=== PATIENT | male | born 1965 | race Caucasian/White ===

== ENCOUNTER → 2017-03-15 | Outpatient (CLI) | payer OTHER | LOC: CARD 10:41 | PROVIDERS: ATTEND Nurse Practitioner Family | DX: R07.89 Other chest pain (principal); R06.09 Other forms of dyspnea | CPT/HCPCS: 93306 ==

== ENCOUNTER → 2017-03-20 | Outpatient (CLI) | payer OTHER ==
[~2017-03-20] MED LIST: CATHETER FLUSH 10 ML SYR IV PRN; REGADENOSON 0.4 MG/5 ML SYR (LEXISCAN) IV ONE
[2017-03-20 09:56] VITALS: BP 127/76
--- NOTE | 2017-03-22 14:20 | STRESS TEST ---
DATE OF SERVICE: 03/20/2017 RESTING AND POST REGADENOSON TECHNETIUM-99m TETROFOSMIN SPECT CT IMAGING ORDERING PHYSICIAN: Kourtney Murguia APRN PRIMARY PHYSICIAN: [facility] in [place], [place]. CLINICAL DIAGNOSIS: Chest pain, exertional shortness of breath. Baseline images were carried out after injection of 10.49 mCi Technetium-99M Tetrofosmin. This was followed by 0.4 mg of regadenoson and 31.2 mCi of Technetium-99M Tetrofosmin for stress imaging. The electrocardiogram showed sinus rhythm with borderline voltage for left ventricular hypertrophy. The electrocardiogram did not change significantly with the regadenoson infusion. He was somewhat short of breath following regadenoson infusion, which resolved in a few minutes. Review of images at rest and following stress does not indicate significant perfusion defects consistent with significant myocardial ischemia or infarction. Gated images show well preserved global left ventricular systolic function with a calculated ejection fraction of 52%. No distinct regional wall motion abnormalities seen. Left ventricular end diastolic volume is 120 mL. TID is absent (0.99). CONCLUSIONS: 1. No evidence of significant myocardial ischemia or infarction on this study. 2. Mild to moderate cardiomegaly. 3. No significant regional wall motion abnormalities seen on this study. 4. Left ventricular ejection fraction is calculated to be 52%. Job ID: [id number] DocumentID: [id number] Dictated Date: 03/22/2017 12:06:17 Kennel Manager Dog [employer] Date: 03/22/2017 12:50:27 Dictated By: RA TORRES MD, MA, FACP, FACC,
== END ==
LOC: CARD 07:44
PROVIDERS: ATTEND Nurse Practitioner Family
DX: R07.89 Other chest pain (principal); R06.09 Other forms of dyspnea
CPT/HCPCS: 78452; 93017

== ENCOUNTER 2022-04-22 13:40 | Inpatient (IN) | payer OTHER ==
[~2022-04-22] VITALS: Ht 177.8 cm; Wt 115.0 kg
[2022-04-22] MEDS ORDERED: polyethylene glycoL POWDER 17 GM (MIRALAX) PACK PO PRN (16:00)
[2022-04-22] MEDS ORDERED: LACTULOSE SYRUP 10GM/15ML (ENULOSE) 30ML UDC PO PRN (16:00)
[2022-04-22] MEDS ORDERED: NS IV 500 ML 500 ML IV PRN ×2 (16:00→19:30)
[2022-04-22] MEDS ORDERED: BISACODYL 10 MG SUPP (DULCOLAX) PR PRN (16:00)
[2022-04-22] MEDS ORDERED: ONDANSETRON 4 MG/2 ML (SDV) Z0FRAN IV PRN (16:00)
[2022-04-22] MEDS ORDERED: MELATONIN 3 MG TABLET PO PRN (16:00)
[2022-04-22] MEDS ORDERED: diphenhydrAMINE 25 MG TAB (BENADRYL) PO PRN (16:00)
[2022-04-22] MEDS ORDERED: ONDANSETRON 4 MG (ZOFRAN) ORAL DISSOLVE TAB PO PRN (16:00)
[2022-04-22] MEDS ORDERED: VANCOMYCIN INJECTION 0.1 MG in NS (IVPB) 250 ML IV SCH (16:00)
[2022-04-22] MEDS ORDERED: MILK OF MAGNESIA 400 MG/5 ML 30 ML UDC PO PRN (16:00)
[2022-04-22] MEDS ORDERED: ANTACID SUSP 30 ML UDC (MYLANTA) PO PRN (16:00)
[2022-04-22] MEDS ORDERED: diphenhydrAMINE 50 MG/ML INJ (BENADRYL) IVP PRN (16:00)
[2022-04-22] MEDS ORDERED: CALCIUM CARBONATE 500 MG (TUMS) TAB.CHEW PO PRN (16:00)
[2022-04-22] MEDS: CEFEPIME INJECTION 1,000 MG in NS (IVPB) 50 ML IV SCH ×2 (16:57→21:55)
[2022-04-22] MEDS: ENOXAPARIN 40 MG/0.4 ML (LOVENOX) SYR SC SCH (16:57)
[2022-04-22] MEDS: ACETAMINOPHEN 325 MG TABLET PO PRN ×2 (16:58→22:30)
[2022-04-22] MEDS: NS IV 1000 ML 1,000 ML IV SCH (16:58)
[2022-04-22 17:53] LABS: AMPHETAMINE SCREEN, URINE POSITIVE (NEGATIVE); BARBITURATE SCREEN URINE NEGATIVE (NEGATIVE); BENZODIAZEPINES SCREEN URINE NEGATIVE (NEGATIVE); CANNABINOID SCREEN, URINE NEGATIVE (NEGATIVE); COCAINE SCREEN URINE NEGATIVE (NEGATIVE); METHADONE STAT NEGATIVE (NEGATIVE); OPIATE SCREEN URINE NEGATIVE (NEGATIVE); OXYCODONE STAT NEGATIVE (NEGATIVE); PROPOXYPHENE STAT NEGATIVE (NEGATIVE); TRICYCLIC ANTIDEPRESSANTS SCRE NEGATIVE (NEGATIVE)
[2022-04-22] MEDS ORDERED: VANCOMYCIN 2000 MG/NS 500 ML IVPB IV ONE ×2 (18:00)
--- NOTE | 2022-04-22 18:03 | Tele-ICU Consult ---
History of Present Illness History of Present Illness Date Seen by Provider: Apr 22, 2022 Time Seen by Provider: 17:59 Date of Admission 04/22/2022 History of Present Illness (Tele-ICU Physician , consultation) Available chart/ vitals / labs / Images reviewed H&P is from ER notes Patient's information available about PMH, allergy reviewed in EMR. ROS as per chart and RN report Video assessment done using teleICU camera, rest of exam as per RN Discussed with RN. He is a 56-year-old male. Past medical history of drug abuse is transferred from [facility] because of possible sepsis. Apparently he has been having some redness in the legs and fever and they have suspected Severe sepsis hence he is transferred to higher level of according to the ICU nurse patient has scabs and wounds all over the legs and arms. His urine drug screen came positive for amphetamines and methamphetamines. It is not known whether he has any IV drug abuse. Reportedly he had a MRSA infection in the past. Allergies and Home Medications Allergies Coded Allergies: No Known Drug Allergies (Unverified , 10/15/15) Past Medical/Social/Family Hx Immunizations Up To Date Influenza Vaccine Up-to-Date: No; Not Current Current Status Advance Directives: No Communicates: Verbally Primary Language: Cymro Preferred Spoken Language: Cymro Is interpretation needed?: No Implanted or Applied Medical D: Other Review of Systems Constitutional: see HPI Focused Exam Height, Weight, BMI Height: 5'10.5" Weight: 223lbs. oz. 101.226586qp; 35.74 BMI Method:Stated Exam Exam Patient acknowledged, consented, and participated in this virtual visit which was conducted using real time audio/video Vital Signs Date Time Temp Pulse Resp B/P (MAP) Pulse Ox O2 Delivery O2 Flow Rate FiO2 04/22/22 17:49 38.4 04/22/22 17:48 38.4 04/22/22 17:04 95 04/22/22 17:00 93 26 131/90 (104) 92 Room Air 04/22/22 16:58 38.4 04/22/22 16:11 37.3 94 14 108/74 (85) 99 Room Air Height & Weight Height: 5'10.5" Weight: 223lbs. oz. 101.628883ij; 35.74 BMI Method:Stated General Appearance: Chronically ill, Mild Distress, Obese Capillary Refill: Less Than 3 Seconds Other comments PE PER air grinder/Plan Assessment/Plan 1. Cellulitis of extremities 2. Possible severe sepsis 3. Possible MRSA infection 4. Drug abuse with amphetamines and methamphetamines. Recommendations. 1. IV fluids for hydration 2. Agree with vancomycin and cefepime 3. DVT prophylaxis and ulcer prophylaxis. 4. Get blood cultures and wound cultures. 5. Awaiting for further labs and information from [place]. Critical Care: Critically Ill Patient Time spent with patient (mins): 20 SHAQ SEVERINO MD Apr 22, 2022 18:03
--- NOTE | 2022-04-22 18:06 | History & Physical-Hospitalist ---
History of Present Illness HPI/Chief Complaint Tera Alva is a 56 year old male with PMH COPD, current smoker, who presented to the [place] ER with weakness. He has had myalgias for a couple days. He also reports right leg rash. His had COVID a couple weeks ago. He was tested yesteray and today and both were negative. He has had fevers. He denies shortness of breath. He has a cough. His throat feels dry. He denies neck pain and photophobia. He denies pain with urination. He denies abdominal pain. He reports nausea and vomiting today. He also had an episode of diarrhea. He says he smokes a half a pack of cigarettes per day. He denies alcohol use. He denies illicit drug use. Source: patient, family Exam Limitations: clinical condition Date Seen 04/22/22 Time Seen by a Provider: 17:15 [facility] Phys[facility] Admitting Physician: Griselda Tom MD Attending Physician: Griselda Tom MD Referring Physician Date of Admission Apr 22, 2022 at 15:50 Home Medications & Allergies Home Medications Reviewed patient Home Medication Reconciliation performed by pharmacy medication reconciliations certification technician and/or nursing. Patients Allergies have been reviewed. Allergies Allergies Coded Allergies No Known Drug Allergies (Unverified10/15/15) Past Mhogmza-Ngcguj-Mdmffm Hx Current Status Advance Directives: No Communicates: Verbally Primary Language: Slovak Preferred Spoken Language: Slovak Is interpretation needed?: No Implanted or Applied Medical D: Other Past Medical History Surgeries: Open Heart Surgery Chronic Bronchitis, COPD Congenital Heart Disease, Palpitations Ulcer Family Medical History No Pertinent Family Hx Review of Systems Constitutional: fever, malaise EENTM: throat pain Respiratory: cough Cardiovascular: no symptoms reported Gastrointestinal: diarrhea, nausea, vomiting Genitourinary: no symptoms reported Musculoskeletal: muscle pain Physical Exam Physical Exam Vital Signs Vital Signs - First Documented 04/22/22 16:11 Temp 37.3 Pulse 94 Resp 14 B/P (MAP) 108/74 (85) Pulse Ox 99 O2 Delivery Room Air Capillary Refill : Less Than 3 Seconds Height, Weight, BMI Height: 5'10.5" Weight: 223lbs. oz. 101.593623zj; 35.74 BMI Method:Stated General Appearance: No Apparent Distress, Obese HEENT: PERRL/EOMI, Other (dry mucous membranes, poor dentition) Neck: Full Range of Motion, Normal Inspection, Supple Respiratory: No Accessory Muscle Use, No Respiratory Distress, Wheezing Cardiovascular: No Murmur, Tachycardia Gastrointestinal: Normal Bowel Sounds, Non Tender, Soft Extremity: Inflammation (right lower extremity red, tender, warm, swollen), Swelling Neurologic/Psychiatric: Alert, No Motor/Sensory Deficits, Other (sleepy) Skin: Erythema (right leg), Rash Results Results/Procedures Labs Patient resulted labs reviewed. Assessment/Plan Admission Diagnosis Sepsis due to cellulitis Admission Status: Inpatient Order (span 2 midnights) Reason for Inpatient Admission: IV antibiotics Assessment and Plan Sepsis due to cellulitis Methamphetamine abuse History of MRSA SIRS+ with fever, leukocytosis, and tachycardia Unknown if intravenous drug use, extensive bilateral upper extremity skin lesions Vancomycin and Cefepime Await blood cultures from [facility] TeleICU consulted Hyponatremia Na 123 prior to transfer Started on IV normal saline Repeat Na and adjust fluids as needed Tobacco abuse Nicotine patch Obesity Clinically significant, no acute management needs DVT prophylaxis: Lovenox Diagnosis/Problems Diagnosis/Problems (1) Sepsis due to cellulitis Status: Acute (2) Methamphetamine abuse Status: Acute (3) History of MRSA infection Status: Acute (4) Tobacco abuse Status: Acute (5) Hyponatremia Status: Acute (6) Obesity Status: Chronic GRISELDA TOM MD Apr 22, 2022 18:06
[2022-04-22] MEDS: DOCUSATE SODIUM 100 MG (COLACE) CAP PO SCH (20:43)
[2022-04-22] MEDS: SENNOSIDES 8.6 MG (SENOKOT) TAB PO SCH (20:43)
[2022-04-22 22:26] LABS: BASOPHILS # (AUTO) 0.1 10^3/uL (0.0-0.1); BASOPHILS % (AUTO) 0 % (0-10); EOSINOPHILS % (AUTO) 0 % (0-10); LYMPHOCYTES % (AUTO) 6 % (12-44)
[2022-04-22 22:28] LABS: HEMATOCRIT 40 % (40-54); HEMOGLOBIN 13.2 g/dL (13.3-17.7); LYMPHOCYTES # (AUTO) 1.7 10^3/uL (1.0-4.0); MEAN CORPUSCULAR HEMOGLOBIN 29 pg (25-34); MEAN CORPUSCULAR HGB CONC 33 g/dL (32-36); MEAN CORPUSCULAR VOLUME 87 fL (80-99); MEAN PLATELET VOLUME 10.5 fL (9.0-12.2); MONOCYTES # (AUTO) 2.2 10^3/uL (0.0-1.0); MONOCYTES % (AUTO) 7 % (0-12); NEUTROPHILS # (AUTO) 25.2 10^3/uL (1.8-7.8); NEUTROPHILS % (AUTO) 86 % (42-75); PLATELET COUNT 189 10^3/uL (130-400); WHITE BLOOD COUNT 29.3 10^3/uL (4.3-11.0)
[2022-04-22 22:43] LABS: CALCIUM 8.9 MG/DL (8.5-10.1); CREATININE SERUM 0.85 MG/DL (0.60-1.30)
[2022-04-22 23:00] LABS: BAND NEUTROPHILS 9 %; LYMPHOCYTES % (MANUAL) 7 %; MONOCYTES % (MANUAL) 5 %; NEUTROPHILS % (MANUAL) 79 %
[2022-04-22 23:01] LABS: PLATELET ESTIMATE NORMAL; RBC MORPH NORMAL; TOXIC GRANULATION/VACUOLAZATIO 2+
[2022-04-23] MEDS: CEFEPIME INJECTION 1,000 MG in NS (IVPB) 50 ML IV SCH ×4 (03:31→21:57)
[2022-04-23 05:09] LABS: EOSINOPHILS % (AUTO) 0 % (0-10); NEUTROPHILS % (AUTO) 84 % (42-75)
[2022-04-23] MEDS: VANCOMYCIN 1500 MG/NS 500 ML IVPB IV SCH ×4 (05:09→17:47)
[2022-04-23 05:11] LABS: BASOPHILS # (AUTO) 0.1 10^3/uL (0.0-0.1); BASOPHILS % (AUTO) 0 % (0-10); HEMATOCRIT 35 % (40-54); HEMOGLOBIN 11.2 g/dL (13.3-17.7); LYMPHOCYTES # (AUTO) 1.4 10^3/uL (1.0-4.0); LYMPHOCYTES % (AUTO) 6 % (12-44); MEAN CORPUSCULAR HEMOGLOBIN 28 pg (25-34); MEAN CORPUSCULAR HGB CONC 32 g/dL (32-36); MEAN CORPUSCULAR VOLUME 88 fL (80-99); MEAN PLATELET VOLUME 10.7 fL (9.0-12.2); MONOCYTES # (AUTO) 2.3 10^3/uL (0.0-1.0); MONOCYTES % (AUTO) 9 % (0-12); NEUTROPHILS # (AUTO) 20.5 10^3/uL (1.8-7.8); PLATELET COUNT 171 10^3/uL (130-400); WHITE BLOOD COUNT 24.5 10^3/uL (4.3-11.0)
[2022-04-23] MEDS: MAGNESIUM 1 GM/100 ML IVPB 100 ML IV SCH ×3 (05:22→06:57)
[2022-04-23 05:37] LABS: CALCIUM 8.5 MG/DL (8.5-10.1); CREATININE SERUM 0.77 MG/DL (0.60-1.30); MAGNESIUM 1.7 MG/DL (1.6-2.4); POTASSIUM 3.9 MMOL/L (3.6-5.0)
[2022-04-23] MEDS: KCL 20 MEQ TAB (K-DUR) PO SCH (05:38)
[2022-04-23] MEDS: POTASSIUM CL 10MEQ/50ML IVPB 50 ML IV SCH (05:38)
[2022-04-23] MEDS: NS IV 1000 ML 1,000 ML IV SCH ×3 (05:46→17:47)
[2022-04-23] MEDS ORDERED: POTASSIUM CL 10MEQ/50ML IVPB 50 ML IV SCH (06:00)
[2022-04-23] MEDS ORDERED: MAGNESIUM 1 GM/100 ML IVPB 100 ML IV SCH (06:00)
[2022-04-23] MEDS ORDERED: KCL 20 MEQ TAB (K-DUR) PO SCH (06:00)
[2022-04-23] MEDS: ACETAMINOPHEN 325 MG TABLET PO PRN ×2 (06:21→15:34)
[2022-04-23] MEDS: SENNOSIDES 8.6 MG (SENOKOT) TAB PO SCH ×2 (07:50→21:00)
[2022-04-23] MEDS: DOCUSATE SODIUM 100 MG (COLACE) CAP PO SCH ×2 (07:50→21:00)
--- NOTE | 2022-04-23 07:55 | Tele-ICU Progress Note ---
Subjective Date Seen by a Provider: Apr 23, 2022 Time Seen by a Provider: 07:54 Subjective/Events-last exam (Tele-ICU Physician , consultation) Available chart/ vitals / labs / Images reviewed H&P is from ER notes Patient's information available about PMH, allergy reviewed in EMR. ROS as per chart and RN report Video assessment done using teleICU camera, rest of exam as per RN Discussed with RN. Patient today continues to have refusal. He complains of right calf pain. He has a cellulitis in the right calf. Blood cultures drawn in [place] results not known. In view of persistent fever we have a concern for endocarditis. Sepsis Event Evaluation Height, Weight, BMI Height: 5'10.5" Weight: 223lbs. oz. 101.957522sq; 35.74 BMI Method:Stated Focused Exam Lactate Level 04/22/22 18:15: Lactic Acid Level 1.19 Exam Exam Patient acknowledged, consented, and participated in this virtual visit which was conducted using real time audio/video Vital Signs Date Time Temp Pulse Resp B/P (MAP) Pulse Ox O2 Delivery O2 Flow Rate FiO2 04/23/22 07:25 36.5 04/23/22 07:12 108 04/23/22 06:21 37.8 04/23/22 06:00 105 20 120/84 (96) 95 Room Air 04/23/22 05:00 112 25 159/91 (113) 96 Room Air 04/23/22 04:02 37.8 95 Room Air 04/23/22 04:00 95 Room Air 04/23/22 04:00 108 148/95 (112) 96 Room Air 04/23/22 03:00 74 140/78 (98) 98 Room Air 04/23/22 02:00 99 21 148/95 (112) 96 Room Air 04/23/22 01:00 83 24 111/74 (86) 97 Room Air 04/23/22 01:00 110 04/23/22 00:02 38.7 04/23/22 00:00 105 117/73 (88) 95 Room Air 04/22/22 23:59 96 Room Air 04/22/22 23:00 38.7 04/22/22 23:00 112 24 129/88 (102) 98 Room Air 04/22/22 22:30 38.5 04/22/22 22:00 97 28 98 Room Air 04/22/22 21:00 99 23 169/102 (124) 98 Room Air 04/22/22 20:00 101 19 155/82 (106) 97 Room Air 04/22/22 19:46 38.5 04/22/22 19:43 94 Room Air 04/22/22 19:15 38.4 04/22/22 19:00 99 20 134/89 (104) 97 Room Air 04/22/22 19:00 100 04/22/22 18:00 97 19 128/71 (90) 97 Room Air 04/22/22 17:49 38.4 04/22/22 17:48 38.4 04/22/22 17:04 95 04/22/22 17:00 93 26 131/90 (104) 92 Room Air 04/22/22 16:58 38.4 04/22/22 16:20 Room Air 04/22/22 16:11 37.3 94 14 108/74 (85) 99 Room Air I & O 04/23/22 07:00 Intake Total 1610 ml Output Total 1850 ml Balance -240 ml Height & Weight Height: 5'10.5" Weight: 223lbs. oz. 101.099545fr; 35.74 BMI Method:Stated General Appearance: No Apparent Distress, Obese HEENT: PERRL/EOMI, Other (dry mucous membranes, poor dentition) Neck: Full Range of Motion, Normal Inspection, Supple Respiratory: No Accessory Muscle Use, No Respiratory Distress, Wheezing Cardiovascular: No Murmur, Tachycardia Capillary Refill: Less Than 3 Seconds Extremity: Inflammation (right lower extremity red, tender, warm, swollen), Swelling Neurologic/Psychiatric: Alert, No Motor/Sensory Deficits, Other (sleepy) Skin: Erythema (right leg), Rash Results Lab Laboratory Tests 04/22/22 18:15 04/22/22 22:10 04/23/22 04:20 Assessment/Plan Assessment/Plan 1. Cellulitis of extremity. 2. Persistent fever despite antibiotic, needs to rule out any endocarditis. 3. History of MRSA infection in the past 4. Drug abuse with amphetamines and methamphetamines. Recommendations 1. We will get a repeat blood cultures 2. Continue IV antibiotics 3. We will get an echocardiogram. 4. Pain management per primary care. 5. Collaboration of care with bedside physicians and consultants Critical Care: Critically Ill Patient Time spent with patient (mins): 15 SHAQ SEVERINO MD Apr 23, 2022 07:55
[2022-04-23] MEDS: MUPIROCIN 2% OINT 22 GM (BACTROBAN) TUBE NSEACH SCH ×3 (09:40→21:56)
--- NOTE | 2022-04-23 10:24 | Progress Note - Hospitalist ---
Subjective HPI/CC On Admission Date Seen by Provider: Apr 23, 2022 Time Seen by Provider: 09:25 Tera Alva is a 56 year old male with PMH COPD, current smoker, who presented to the [place] ER with weakness. He has had myalgias for a couple days. He also reports right leg rash. His had COVID a couple weeks ago. He was tested yesteray and today and both were negative. He has had fevers. He denies shortness of breath. He has a cough. His throat feels dry. He denies neck pain and photophobia. He denies pain with urination. He denies abdominal pain. He reports nausea and vomiting today. He also had an episode of diarrhea. He says he smokes a half a pack of cigarettes per day. He denies alcohol use. He denies illicit drug use. Subjective/Events-last exam He is feeling better today. He still has right leg pain. He is still having fevers. He feels diaphoretic. His appetite is good. Focused Exam Lactate Level 04/22/22 18:15: Lactic Acid Level 1.19 Objective Exam Vital Signs Vital Signs Date Time Temp Pulse Resp B/P (MAP) Pulse Ox O2 Delivery O2 Flow Rate FiO2 04/23/22 10:00 101 14 124/100 (108) 90 Room Air 04/23/22 07:25 36.5 Capillary Refill : Less Than 3 Seconds General Appearance: No Apparent Distress, Obese Respiratory: Lungs Clear, No Respiratory Distress Cardiovascular: No Murmur, Tachycardia Gastrointestinal: Normal Bowel Sounds, Non Tender, Soft Extremity: Inflammation (posterior ankle/calf indurated and tender, erythema improving from previously marked areas) Neurologic/Psychiatric: Alert, Normal Mood/Affect Skin: Erythema Results/Procedures Lab Laboratory Tests 04/22/22 18:15 04/22/22 22:10 04/23/22 04:20 Patient resulted labs reviewed. Assessment/Plan Assessment and Plan Assess & Plan/Chief Complaint Sepsis due to cellulitis Methamphetamine abuse History of MRSA Continue Vancomycin and Cefepime Follow up on blood cultures from [facility] TeleICU following Consult surgery, concern for possible abscess, discussed with Dr. Kerr Hyponatremia Na 127, improving Continue IV fluids Tobacco abuse Nicotine patch Obesity Clinically significant, no acute management needs DVT prophylaxis: Lovenox Diagnosis/Problems Diagnosis/Problems (1) Sepsis due to cellulitis Status: Acute (2) Methamphetamine abuse Status: Acute (3) History of MRSA infection Status: Acute (4) Tobacco abuse Status: Acute (5) Hyponatremia Status: Acute (6) Obesity Status: Chronic NE TOM MD Apr 23, 2022 10:24
--- NOTE | 2022-04-23 11:28 | Consultation - Surgery ---
NEIL LAWTON 04/23/22 1128: History of Present Illness History of Present Illness Patient Consulted On(jerome/time) 04/23/22 11:16 Date Seen by Provider: Apr 23, 2022 Time Seen by Provider: 11:17 History of Present Illness Consultation requested per Dr. Calderon. Patient is a 56 year old male with a past medical history of COPD, and tobacco use presented to the ER in [place] for general malaise, fever, and weakness. Patient began feeling subjective fever and myalgia so he and his went to [facility] on to have him checked for COVID since she had just recently been ill with COVID. He tested negative. He then began feeling worse and decided to come to the ER. Patient today denies any CP, SOB, N/V/D, abdominal pain, or chills. Patient's complaint today is tenderness of his right calf d/t diffuse area of cellulitis. Patient toxicology positive for methamphetamines, he denies drug use. 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 Allergies and Home Medications Allergies Coded Allergies: No Known Drug Allergies (Unverified , 10/15/15) Patient Home Medication List Home Medication List Reviewed: Yes Past Ojsklko-Ngknnj-Lhkhtt Hx Patient Social History Smoking Status: Current Everyday Smoker Type Used: Cigarettes Alcohol Use?: No Substance type: Amphetamines, Methamphetamine Have you traveled recently?: No Immunizations Up To Date Tetanus Booster (TDap): Less than 5yrs Surgeries History of Surgeries: Yes Surgeries: Open Heart Surgery Respiratory History of Respiratory Disorde: Yes Respiratory Disorders: Chronic Bronchitis, COPD Cardiovascular History of Cardiac Disorders: Yes Cardiac Disorders: Congenital Heart Disease, Palpitations Neurological History of Neurological Disord: No Reproductive System Hx Reproductive Disorders: No Genitourinary History of Genitourinary Disor: No Gastrointestinal History of Gastrointestinal Di: Yes Gastrointestinal Disorders: Ulcer Musculoskeletal History of Musculoskeletal Dis: No Endocrine History of Endocrine Disorders: No HEENT History of HEENT Disorders: No Cancer History of Cancer: No Psychosocial History of Psychiatric Problem: No Integumentary History of Skin or Integumenta: No Family Medical History Significant Family History: No Pertinent Family Hx, Cancer (lung-father), Other Conditions/Hx (mother of DE-unknown age) Review of Systems-General Constitutional: No chills, No diaphoresis; weakness EENTM: No hearing loss, No ear pain Respiratory: No cough, No dyspnea on exertion Cardiovascular: No chest pain, No edema Gastrointestinal: No abdominal pain, No nausea, No vomiting Genitourinary: No decreased output, No discharge Musculoskeletal: No gout, No joint pain Skin: rash (right calf) Psychiatric/Neurological: Denies Anxiety, Denies Depressed All Other Systems Reviewed Negative Unless Noted: Yes (Negative excepted noted.) Physical Exam-General Problems Physical Exam Vital Signs Vital Signs - First Documented 04/22/22 16:11 Temp 37.3 Pulse 94 Resp 14 B/P (MAP) 108/74 (85) Pulse Ox 99 O2 Delivery Room Air Capillary Refill : Less Than 3 Seconds General Appearance: WD/WN, no apparent distress HEENT: PERRL/EOMI, normal ENT inspection Neck: full range of motion, normal inspection Respiratory: no respiratory distress, no accessory muscle use Cardiovascular: no edema, no JVD Peripheral Pulses: 2+ Radial Pulses (R), 2+ Radial Pulses (L) Gastrointestinal: non tender, soft, other (Umbilical hernia) Rectal: deferred Back: normal inspection, no CVA tenderness Extremities: calf tenderness, other (Diffuse cellulits of right calf, erythematous and indurated, tender to palpation. ) Neurologic/Psychiatric: alert, oriented x 3 Skin: normal color, warm/dry, other (Scrattered scabbed over lesions on bilateral upper extremities), tattoos/piercings Lymphatic: no adenopathy Data Review Labs Laboratory Tests 04/22/22 16:44: Urine Opiates Screen NEGATIVE, Urine Oxycodone Screen NEGATIVE, Urine Methadone Screen NEGATIVE, Urine Propoxyphene Screen NEGATIVE, Urine Barbiturates Screen NEGATIVE, Ur Tricyclic Antidepressants Screen NEGATIVE, Urine Phencyclidine Screen NEGATIVE, Urine Amphetamines Screen POSITIVEH, Urine Methamphetamines Screen POSITIVEH, Urine Benzodiazepines Screen NEGATIVE, Urine Cocaine Screen NEGATIVE, Urine Cannabinoids Screen NEGATIVE 04/22/22 18:15: Erythrocyte Sedimentation Rate 51H, Sodium Level 127L, Lactic Acid Level 1.19, C-Reactive Protein High Sensitivity 27.89H, Procalcitonin 84.92H 04/22/22 22:10: Sodium Level 127L, White Blood Count 29.3H, Red Blood Count 4.58, Hemoglobin 13 .2L, Hematocrit 40, Mean Corpuscular Volume 87, Mean Corpuscular Hemoglobin 29, Mean Corpuscular Hemoglobin Concent 33, Red Cell Distribution Width 13.8, Platelet Count 189, Mean Platelet Volume 10.5, Immature Granulocyte % (Auto) 1, Neutrophils (%) (Auto) 86H, Lymphocytes (%) (Auto) 6L, Monocytes (%) (Auto) 7, Eosinophils (%) (Auto) 0, Basophils (%) (Auto) 0, Neutrophils # (Auto) 25.2H, Lymphocytes # (Auto) 1.7, Monocytes # (Auto) 2.2H, Eosinophils # (Auto) 0.0, Basophils # (Auto) 0.1, Immature Granulocyte # (Auto) 0.2H, Neutrophils % (Manual) 79, Lymphocytes % (Manual) 7, Monocytes % (Manual) 5, Band Neutrophils 9, Toxic Granulation 2+, Platelet Estimate NORMAL, Percent Immature Platelet Fraction 5.2, Blood Morphology Comment NORMAL, Potassium Level 4.0, Chloride Level 97L, Carbon Dioxide Level 20L, Anion Gap 10, Blood Urea Nitrogen 11, Creatinine 0.85, Estimat Glomerular Filtration Rate 103, BUN/Creatinine Ratio 13, Glucose Level 113H, Calcium Level 8.9 04/23/22 04:20: Sodium Level 127L, White Blood Count 24.5H, Red Blood Count 3.98L, Hemoglobin 11.2L, Hematocrit 35L, Mean Corpuscular Volume 88, Mean Corpuscular Hemoglobin 28, Mean Corpuscular Hemoglobin Concent 32, Red Cell Distribution Width 13.8, Platelet Count 171, Mean Platelet Volume 10.7, Immature Granulocyte % (Auto) 1, Neutrophils (%) (Auto) 84H, Lymphocytes (%) (Auto) 6L, Monocytes (%) (Auto) 9, Eosinophils (%) (Auto) 0, Basophils (%) (Auto) 0, Neutrophils # (Auto) 20.5H, Lymphocytes # (Auto) 1.4, Monocytes # (Auto) 2.3H, Eosinophils # (Auto) 0.0, Basophils # (Auto) 0.1, Immature Granulocyte # (Auto) 0.2H, Percent Immature Platelet Fraction 5.1, Potassium Level 3.9, Chloride Level 98, Carbon Dioxide Level 17L, Anion Gap 12, Blood Urea Nitrogen 11, Creatinine 0.77, Estimat G lomerular Filtration Rate 106, BUN/Creatinine Ratio 14, Glucose Level 91, Calcium Level 8.5, Magnesium Level 1.7 Assessment/Plan Assessment/Plan Assessment/Plan Sepsis secondary to cellulitis of right calf Methamphetamine use History of MRSA Blood cultures pending from [facility] Continue abx No further imaging needed at this time Continue supportive care HERMES MARSHALL DO 04/23/22 1227: History of Present Illness History of Present Illness History of Present Illness Consult requested by Dr. Calderon for cellulitis of right lower extremity. Patient is a 56-year-old male who began having fever and body aches. Last he was tested for COVID which they report was negative. He was having fevers and also having calf tenderness to the right lower extremity. He is unsure exactly how long that has been there. Tender to touch. Not touching him makes it feel little bit better. Since being in the hospital is gone down a little bit in terms of the redness. His was recently COVID-positive. His white blood cell count was 29,000 slightly decreased today to 24,000. Overall feeling a little bit better today than yesterday. Allergies and Home Medications Allergies Coded Allergies: No Known Drug Allergies (Unverified , 10/15/15) Patient Home Medication List Home Medication List Reviewed: Yes Past Xjqfgiu-Admvcw-Ujwouo Hx Reviewed Nursing Assessment Reviewed/Agree w Nursing PMH: Yes Family Medical History Significant Family History: No Pertinent Family Hx Review of Systems-General Constitutional: No chills, No diaphoresis; fever, weakness EENTM: No hearing loss, No ear pain Respiratory: No cough, No dyspnea on exertion Cardiovascular: No chest pain, No edema Gastrointestinal: No abdominal pain, No nausea, No vomiting Genitourinary: No decreased output, No discharge Musculoskeletal: No gout, No joint pain Skin: rash (right calf) Psychiatric/Neurological: Denies Anxiety, Denies Depressed, Denies Emotional Problems All Other Systems Reviewed Negative Unless Noted: Yes (Negative excepted noted.) Physical Exam-General Problems Physical Exam General Appearance: WD/WN, no apparent distress HEENT: PERRL/EOMI, normal ENT inspection Neck: full range of motion, normal inspection Respiratory: chest non-tender, no respiratory distress, no accessory muscle use Cardiovascular: regular rate, rhythm, no JVD Gastrointestinal: non tender, soft Rectal: deferred Back: normal inspection, no CVA tenderness Extremities: calf tenderness (right), other (Diffuse cellulits of right calf, erythematous and indurated, tender to palpation no fluctuance) Neurologic/Psychiatric: alert, oriented x 3 Skin: normal color, warm/dry Lymphatic: no adenopathy Assessment/Plan Assessment/Plan Assessment/Plan Sepsis secondary to cellulitis of right calf Methamphetamine positive tox screen, patient denies use History of MRSA Blood cultures pending from [facility] Continue abx No further imaging needed at this time Continue supportive care Erythema outlined, continue to monitor for expanding. Supervisory-Addendum Brief Verification & Attestation Participated in pt care: history, MDM, physical Personally performed: exam, history, MDM, supervision of care Care discussed with: Medical Student Procedures: n/a Results interpretation: Verified all documentation Verification and Attestation of Medical Student E/M Service A medical student performed and documented this service in my presence. I reviewed and verified all information documented by the medical student and made modifications to such information, when appropriate. I personally performed the physical exam and medical decision making. Hermes Marshall, Apr 23, 2022,12:30 NEIL LAWTON Apr 23, 2022 11:28 HERMES MARSHALL DO Apr 23, 2022 12:27
--- NOTE | 2022-04-23 12:02 | Diagnostic Imaging Report ---
CLINICAL INDICATIONS: Patient with hypoxia. EXAM: Portable chest x-ray upright view. COMPARISON: None. FINDINGS: Lungs/pleura: There are curvilinear opacities involving the left lung base region which may represent atelectasis. There is no lung infiltrate. There is no pneumothorax. There is no pleural effusion. Mediastinum: Unremarkable. Pulmonary vasculature: Unremarkable. Heart: Cardiac silhouette is upper limits of normal for portable projection.. Bones/extrathoracic soft tissue: There are degenerative spurs involving the spine. IMPRESSION: 1: There is no radiographic evidence of acute cardiopulmonary process. There is mild atelectasis in left lung base. Dictated by: Dictated on workstation # [id number]
[2022-04-23] MEDS: ENOXAPARIN 40 MG/0.4 ML (LOVENOX) SYR SC SCH (17:47)
[2022-04-24 04:25] LABS: BASOPHILS # (AUTO) 0.1 10^3/uL (0.0-0.1); BASOPHILS % (AUTO) 0 % (0-10); EOSINOPHILS % (AUTO) 0 % (0-10); HEMATOCRIT 35 % (40-54); HEMOGLOBIN 11.4 g/dL (13.3-17.7); LYMPHOCYTES # (AUTO) 2.5 10^3/uL (1.0-4.0); LYMPHOCYTES % (AUTO) 14 % (12-44); MEAN CORPUSCULAR HEMOGLOBIN 29 pg (25-34); MEAN CORPUSCULAR HGB CONC 33 g/dL (32-36); MEAN CORPUSCULAR VOLUME 88 fL (80-99); MEAN PLATELET VOLUME 10.6 fL (9.0-12.2); MONOCYTES # (AUTO) 2.8 10^3/uL (0.0-1.0); MONOCYTES % (AUTO) 16 % (0-12); NEUTROPHILS # (AUTO) 12.6 10^3/uL (1.8-7.8); NEUTROPHILS % (AUTO) 69 % (42-75); PLATELET COUNT 221 10^3/uL (130-400); WHITE BLOOD COUNT 18.3 10^3/uL (4.3-11.0)
[2022-04-24 04:33] LABS: CALCIUM 8.1 MG/DL (8.5-10.1); CREATININE SERUM 0.75 MG/DL (0.60-1.30); MAGNESIUM 1.7 MG/DL (1.6-2.4); POTASSIUM 3.3 MMOL/L (3.6-5.0)
[2022-04-24] MEDS: CEFEPIME INJECTION 1,000 MG in NS (IVPB) 50 ML IV SCH ×4 (04:45→21:49)
[2022-04-24 04:54] LABS: VANCOMYCIN,TROUGH 12.3 UG/ML (10.0-20.0)
[2022-04-24] MEDS ORDERED: TROUGH ORDER-PHARMACY XX ONE (05:00)
[2022-04-24] MEDS: KCL 20 MEQ TAB (K-DUR) PO SCH ×3 (05:42→08:27)
[2022-04-24] MEDS: MAGNESIUM 1 GM/100 ML IVPB 100 ML IV SCH ×3 (05:43→06:56)
[2022-04-24] MEDS: POTASSIUM CL 10MEQ/50ML IVPB 50 ML IV SCH (05:47)
[2022-04-24] MEDS: VANCOMYCIN 1500 MG/NS 500 ML IVPB IV SCH ×4 (06:06→18:36)
--- NOTE | 2022-04-24 06:34 | Progress Note - Surgery ---
NEIL LAWTON 04/24/22 0634: Subjective Date Seen by a Provider: Apr 24, 2022 Time Seen by a Provider: 06:29 Subjective/Events-last exam Patient is laying in bed comfortably Denies any N/V/D, SOB, fever, or chills RLE tender, otherwise no other complaints at this time Is tolerating diet well Pain is well controlled Labs reviewed Review of Systems General: No Chills, No Night Sweats HEENT: No Visual Changes, No Eye Pain Pulmonary: No Dyspnea, No Cough Cardiovascular: No: Chest Pain, Palpitations Gastrointestinal: No: Nausea, Vomiting, Abdominal Pain Genitourinary: No Dysuria, No Frequency Musculoskeletal: No: neck pain, shoulder pain Neurological: No: Weakness, Numbness Focused Exam Lactate Level 04/22/22 18:15: Lactic Acid Level 1.19 04/23/22 13:00: Lactic Acid Level 1.16 Objective Exam Vital Signs Date Time Temp Pulse Resp B/P (MAP) Pulse Ox O2 Delivery O2 Flow Rate FiO2 04/24/22 05:00 94 28 136/90 (105) 97 Room Air 04/24/22 04:00 91 24 128/88 (101) 93 Room Air 04/24/22 04:00 95 Room Air 04/24/22 03:00 91 19 110/72 (85) 93 Room Air 04/24/22 02:00 97 24 109/67 (81) 92 Room Air 04/24/22 01:00 95 04/24/22 01:00 93 16 118/75 (89) 90 Room Air 04/24/22 00:00 93 22 130/83 (99) 93 Room Air 04/23/22 23:59 94 Room Air 04/23/22 23:00 88 20 122/82 (95) 96 Room Air 04/23/22 22:00 97 9 116/71 (86) 97 Room Air 04/23/22 21:00 96 15 124/84 (97) 98 Room Air 04/23/22 20:00 96 Room Air 04/23/22 20:00 93 20 130/88 (102) 96 Room Air 04/23/22 19:00 94 21 133/83 (100) 98 Room Air 04/23/22 19:00 96 04/23/22 18:00 92 25 116/79 (91) 98 Room Air 04/23/22 17:00 94 18 104/71 (82) 97 Room Air 04/23/22 16:18 36.1 04/23/22 16:17 36.1 04/23/22 16:00 99 35 119/66 (83) 98 Room Air 04/23/22 15:43 Room Air 04/23/22 15:34 38.1 04/23/22 15:28 38.1 04/23/22 14:00 102 22 136/82 (100) 95 Room Air 04/23/22 13:07 96 04/23/22 13:00 93 25 115/85 (95) 95 Room Air 04/23/22 12:00 37.2 04/23/22 12:00 91 17 137/101 (113) 97 Room Air 04/23/22 11:58 Room Air 04/23/22 11:00 91 18 117/87 (97) 93 Room Air 04/23/22 10:00 101 14 124/100 (108) 90 Room Air 04/23/22 09:00 99 27 85/71 (76) 89 Room Air 04/23/22 08:00 Room Air 04/23/22 08:00 94 15 126/80 (95) 97 Room Air 04/23/22 07:25 36.5 04/23/22 07:12 108 04/23/22 07:00 109 20 144/82 (102) 95 Room Air I & O 04/24/22 07:00 Intake Total 4090 ml Output Total 2300 ml Balance 1790 ml Capillary Refill : Less Than 3 Seconds General Appearance: No Apparent Distress, Obese HEENT: PERRL/EOMI, Other (dry mucous membranes, poor dentition) Neck: Full Range of Motion, Normal Inspection, Supple Respiratory: Chest Non Tender, No Accessory Muscle Use, No Respiratory Distress, Wheezing (Left lower lobe) Cardiovascular: Regular Rate, Rhythm, No Gallop, No Murmur Peripheral Pulses: 2+ Radial Pulses (R), 2+ Radial Pulses (L) Gastrointestinal: non tender, soft Extremity: Calf Tenderness (Right calf), Inflammation (Right lower extremity red, tender, warm, swollen. Erythema outlined ), Swelling (RLE) Neurologic/Psychiatric: Alert, No Motor/Sensory Deficits, Normal Mood/Affect, Other Skin: Normal Color, Warm/Dry, Erythema (RLE), Rash, Tattoos/Piercings Lymphatic: No Adenopathy Results Lab Laboratory Tests 04/23/22 13:00: Lactic Acid Level 1.16 04/24/22 03:25: White Blood Count 18.3H, Red Blood Count 3.95L, Hemoglobin 11.4L, Hematocrit 35L , Mean Corpuscular Volume 88, Mean Corpuscular Hemoglobin 29, Mean Corpuscular Hemoglobin Concent 33, Red Cell Distribution Width 14.0, Platelet Count 221, Mean Platelet Volume 10.6, Immature Granulocyte % (Auto) 1, Neutrophils (%) (Auto) 69, Lymphocytes (%) (Auto) 14, Monocytes (%) (Auto) 16H, Eosinophils (%) (Auto) 0, Basophils (%) (Auto) 0, Neutrophils # (Auto) 12.6H, Lymphocytes # (Auto) 2.5, Monocytes # (Auto) 2.8H, Eosinophils # (Auto) 0.0, Basophils # (Auto) 0.1, Immature Granulocyte # (Auto) 0.2H, Sodium Level 129L, Potassium Level 3.3L, Chloride Level 99, Carbon Dioxide Level 20L, Anion Gap 10, Blood Urea Nitrogen 8, Creatinine 0.75, Estimat Glomerular Filtration Rate 107, BUN/Creatinine Ratio 11, Glucose Level 109H, Calcium Level 8.1L, Magnesium Level 1.7 04/24/22 03:39: Procalcitonin 30.88H, Vancomycin Level Trough 12.3 Microbiology 04/22/22 Blood Culture - Preliminary, Resulted No growth 04/22/22 MRSA Screen - Final, Complete MRSA not isolated Assessment/Plan Assessment/Plan Assessment/Plan Sepsis secondary to cellulitis of right calf Methamphetamine positive tox screen, patient denies use History of MRSA Blood cultures resulted from [facility]-Negative. Repeat blood cultures ordered Continue abx No further imaging needed at this time Continue supportive care Erythema outlined, continue to monitor for expansion-Currently within outline HERMES KERR DO 04/24/22 0950: Subjective Subjective/Events-last exam Patient right lower extremity bar tender. Redness gone down a little mores. Wbc trending down. No new complaints. Denies n/v fever sweats chills shortness of breath or chest pain. Objective Exam General Appearance: No Apparent Distress, Obese HEENT: PERRL/EOMI, Other (dry mucous membranes, poor dentition) Neck: Full Range of Motion, Normal Inspection, Supple Respiratory: Chest Non Tender, No Accessory Muscle Use, No Respiratory Distress Cardiovascular: Regular Rate, Rhythm, No JVD Gastrointestinal: non tender, soft Extremity: Calf Tenderness (Right calf), Inflammation (Right lower extremity red, tender, warm, swollen. Erythema less than outlined), Swelling (RLE) Neurologic/Psychiatric: Alert, Oriented x3, No Motor/Sensory Deficits, Normal Mood/Affect Skin: Normal Color, Warm/Dry, Erythema (RLE), Rash, Tattoos/Piercings Lymphatic: No Adenopathy Assessment/Plan Assessment/Plan Assessment/Plan Sepsis secondary to cellulitis of right calf Methamphetamine positive tox screen, patient denies use History of MRSA Blood cultures resulted from [facility]-Negative. Repeat blood cultures ordered Continue abx No further imaging needed at this time Continue supportive care Erythema outlined, continue to monitor for expansion-Currently within outline decreasing Supervisory-Addendum Brief Verification & Attestation Participated in pt care: history, MDM, physical Personally performed: exam, history, MDM, supervision of care Care discussed with: Medical Student Procedures: n/a Results interpretation: Verified all documentation Verification and Attestation of Medical Student E/M Service A medical student performed and documented this service in my presence. I reviewed and verified all information documented by the medical student and made modifications to such information, when appropriate. I personally performed the physical exam and medical decision making. Hermes Kerr, Apr 24, 2022,09:50 NEIL LAWTON Apr 24, 2022 06:34 HERMES KERR DO Apr 24, 2022 09:50
[2022-04-24] MEDS: MUPIROCIN 2% OINT 22 GM (BACTROBAN) TUBE NSEACH SCH ×2 (08:31→21:55)
[2022-04-24] MEDS: DOCUSATE SODIUM 100 MG (COLACE) CAP PO SCH ×2 (08:31→21:54)
[2022-04-24] MEDS: SENNOSIDES 8.6 MG (SENOKOT) TAB PO SCH ×2 (08:31→21:54)
[2022-04-24] MEDS ORDERED: FLUT1DIS26 IH (09:58)
[2022-04-24] MEDS ORDERED: OMEP20CA18 PO (09:58)
[2022-04-24] MEDS ORDERED: ALB0.5V INH (09:58)
[2022-04-24] MEDS ORDERED: RT-ALBUINH INH (09:58)
[2022-04-24] MEDS ORDERED: ALBU6.7H13 INH (09:58)
--- NOTE | 2022-04-24 10:01 | Tele-ICU Progress Note ---
Subjective Date Seen by a Provider: Apr 24, 2022 Time Seen by a Provider: 09:59 Subjective/Events-last exam (Tele-ICU Physician , Progress Note ) Service provided via interactive audio and video telecommunications E-CARE system to a patient admitted to ICU bed in [facility]. Available chart/ vitals / labs / Images reviewed Video assessment done using teleICU camera, rest of exam as per RN Discussed with RN Events overnight : Afebrile hemodynamically stable Respiratory - I/O = Drips: Pressors- no Consultants: sx Hospital course: (04/22) Admitted a 56 y/o with severe sepsis cellulitis RLE. Meth abuse, hyponatremia Patient is seen today as follow up A/P Sepsis secondary to cellulitis of right calf - improved , no end-organ compromise now - will stop IVF ( with nl vitals and pulm HTN ) - cont abx Right calf cellulitis - cont abx with MRSA cobverage ( reported h/o MRSA - Sx consulted , following H/o MRSA - reported - neg nasal swab, ? any woung cx done ? - given IV Vanco - follow closely Methamphetamine positive tox screen - patient denies use as per chart - monitor for withdrowal Hyponatremia - improving att appropriate range -consider to stop NS and allow generpouse Na containing food Obesity Mild pulm NTH - RVSP 35 mmHg on ECHO 04/2022 - possible due to MALGORZATA ? Lines : periph , (Central Line Necessity Reviewed) Venegas: void OG: Nutrition: po Analgesia: Anxiety/ delirium VTE Prophylaxis: matilde 40 Stress Ulcer Prophylaxis: Plans in collaboration with bedside consultants and IM MDs. Discussed with RN to reach out if any questions or concerns A total of 31 minutes of critical care time was devoted to this patient today, required to treat and/or prevent further deterioration of critical care condition ( as above ) . I am remotely monitoring this patient from another state. I am unable to do the bedside exam, and history/physical and pertinent information is taken from other notes in the computer and bedside staff. Sepsis Event Evaluation Height, Weight, BMI Height: 5'10.5" Weight: 223lbs. oz. 101.678978qq; 35.99 BMI Method:Stated Focused Exam Lactate Level 04/22/22 18:15: Lactic Acid Level 1.19 04/23/22 13:00: Lactic Acid Level 1.16 Exam Exam Patient acknowledged, consented, and participated in this virtual visit which was conducted using real time audio/video Vital Signs Date Time Temp Pulse Resp B/P (MAP) Pulse Ox O2 Delivery O2 Flow Rate FiO2 04/24/22 09:00 89 15 155/119 (131) 98 Room Air 04/24/22 08:00 93 21 125/81 (96) 92 Room Air 04/24/22 07:48 37.0 04/24/22 07:00 97 18 114/54 (74) 93 Room Air 04/24/22 07:00 102 04/24/22 06:00 96 32 152/59 (90) 95 Room Air 04/24/22 05:00 94 28 136/90 (105) 97 Room Air 04/24/22 04:00 37.2 04/24/22 04:00 91 24 128/88 (101) 93 Room Air 04/24/22 04:00 95 Room Air 04/24/22 03:00 91 19 110/72 (85) 93 Room Air 04/24/22 02:00 97 24 109/67 (81) 92 Room Air 04/24/22 01:00 95 04/24/22 01:00 93 16 118/75 (89) 90 Room Air 04/24/22 00:00 36.5 04/24/22 00:00 93 22 130/83 (99) 93 Room Air 04/23/22 23:59 94 Room Air 04/23/22 23:00 88 20 122/82 (95) 96 Room Air 04/23/22 22:00 97 9 116/71 (86) 97 Room Air 04/23/22 21:00 96 15 124/84 (97) 98 Room Air 04/23/22 20:00 96 Room Air 04/23/22 20:00 93 20 130/88 (102) 96 Room Air 04/23/22 19:00 94 21 133/83 (100) 98 Room Air 04/23/22 19:00 96 04/23/22 18:00 92 25 116/79 (91) 98 Room Air 04/23/22 17:00 94 18 104/71 (82) 97 Room Air 04/23/22 16:18 36.1 04/23/22 16:17 36.1 04/23/22 16:00 99 35 119/66 (83) 98 Room Air 04/23/22 15:43 Room Air 04/23/22 15:34 38.1 04/23/22 15:28 38.1 04/23/22 14:00 102 22 136/82 (100) 95 Room Air 04/23/22 13:07 96 04/23/22 13:00 93 25 115/85 (95) 95 Room Air 04/23/22 12:00 37.2 04/23/22 12:00 91 17 137/101 (113) 97 Room Air 04/23/22 11:58 Room Air 04/23/22 11:00 91 18 117/87 (97) 93 Room Air 04/23/22 10:00 101 14 124/100 (108) 90 Room Air I & O 04/24/22 07:00 Intake Total 5150 ml Output Total 2700 ml Balance 2450 ml Height & Weight Height: 5'10.5" Weight: 223lbs. oz. 101.368873hi; 35.99 BMI Method:Stated General Appearance: No Apparent Distress, Obese HEENT: PERRL/EOMI, Other (dry mucous membranes, poor dentition) Neck: Full Range of Motion, Normal Inspection, Supple Respiratory: Chest Non Tender, No Accessory Muscle Use, No Respiratory Distress Cardiovascular: Regular Rate, Rhythm, No JVD Capillary Refill: Less Than 3 Seconds Peripheral Pulses: 2+ Radial Pulses (R), 2+ Radial Pulses (L) Gastrointestinal: non tender, soft Extremity: Calf Tenderness (Right calf), Inflammation (Right lower extremity red, tender, warm, swollen. Erythema less than outlined), Swelling (RLE) Neurologic/Psychiatric: Alert, Oriented x3, No Motor/Sensory Deficits, Normal Mood/Affect Skin: Normal Color, Warm/Dry, Erythema (RLE), Rash, Tattoos/Piercings Lymphatic: No Adenopathy Results Lab Laboratory Tests 04/22/22 18:15 04/22/22 22:10 04/23/22 04:20 04/24/22 03:25 Assessment/Plan Assessment/Plan 1 LUIS ALFREDO ALICEA MD Apr 24, 2022 10:01
--- NOTE | 2022-04-24 14:00 | Progress Note ---
Subjective Subjective/Events-last exam Patient states that he is feeling better. Still having quite alot of pain with ambulation. Tolerated PO diet. Review of Systems General: No Chills; Fatigue Pulmonary: No Dyspnea, No Cough Cardiovascular: Edema; No: Chest Pain, Palpitations Gastrointestinal: No: Nausea, Vomiting, Abdominal Pain Neurological: Weakness, Incoordination Focused Exam Lactate Level 04/22/22 18:15: Lactic Acid Level 1.19 04/23/22 13:00: Lactic Acid Level 1.16 Objective Exam Last Set of Vital Signs Vital Signs Date Time Temp Pulse Resp B/P (MAP) Pulse Ox O2 Delivery O2 Flow Rate FiO2 04/24/22 13:02 91 10 140/91 (107) 95 Room Air 04/24/22 12:00 37.7 Capillary Refill : Less Than 3 Seconds I&O l Intake and Output 04/24/22 00:00 Intake Total 5150 ml Output Total 3500 ml Balance 1650 ml Intake Oral 3250 ml IV Total 1900 ml Output Urine Total 3500 ml General: Alert, Oriented X3, No Acute Distress Lungs: Clear to Auscultation, Normal Air Movement Heart: Regular Rate, No Murmurs Abdomen: Normal Bowel Sounds, Soft, No Tenderness, No Masses Extremities: Other (+ erythema and swelling RLL, redness reciding from line) Neuro: Normal Speech, Cranial Nerves 3-12 NL Psych/Mental Status: Mental Status NL, Mood NL Results/Procedures Lab Laboratory Tests 04/24/22 03:25: White Blood Count 18.3H, Red Blood Count 3.95L, Hemoglobin 11.4L, Hematocrit 35L , Mean Corpuscular Volume 88, Mean Corpuscular Hemoglobin 29, Mean Corpuscular Hemoglobin Concent 33, Red Cell Distribution Width 14.0, Platelet Count 221, Mean Platelet Volume 10.6, Immature Granulocyte % (Auto) 1, Neutrophils (%) (Auto) 69, Lymphocytes (%) (Auto) 14, Monocytes (%) (Auto) 16H, Eosinophils (%) (Auto) 0, Basophils (%) (Auto) 0, Neutrophils # (Auto) 12.6H, Lymphocytes # (Auto) 2.5, Monocytes # (Auto) 2.8H, Eosinophils # (Auto) 0.0, Basophils # (Auto) 0.1, Immature Granulocyte # (Auto) 0.2H, Sodium Level 129L, Potassium Level 3.3L, Chloride Level 99, Carbon Dioxide Level 20L, Anion Gap 10, Blood Urea Nitrogen 8, Creatinine 0.75, Estimat Glomerular Filtration Rate 107, BUN/ Creatinine Ratio 11, Glucose Level 109H, Calcium Level 8.1L, Magnesium Level 1.7 04/24/22 03:39: Procalcitonin 30.88H, Vancomycin Level Trough 12.3 Microbiology 04/22/22 Blood Culture - Preliminary, Resulted No growth 04/22/22 MRSA Screen - Final, Complete MRSA not isolated Assessment/Plan Assessment/Plan (1) Sepsis due to cellulitis Status: Acute Assessment & Plan: 04/24: Continue IV antibiotics, Discussed ROM exercises and getting up and walking, transfer patient to Med/Surg (2) Cellulitis of right lower leg Status: Acute (3) Hyponatremia Status: Acute Assessment & Plan: 04/24: Improving, continue to monitor (4) Tobacco abuse Status: Chronic Assessment & Plan: 04/24: Discussed the need for cessation (5) Methamphetamine abuse Status: Chronic Assessment & Plan: 04/24: Patient interested in stopping, will be referral to ATS at [facility] at discharge (6) History of MRSA infection Status: Acute ABENA GOMES MD Apr 24, 2022 13:59
[2022-04-24] MEDS: ENOXAPARIN 40 MG/0.4 ML (LOVENOX) SYR SC SCH (16:42)
[2022-04-24 23:06] VITALS: BP 143/82
[2022-04-25 03:13] LABS: BASOPHILS # (AUTO) 0.1 10^3/uL (0.0-0.1); BASOPHILS % (AUTO) 1 % (0-10); EOSINOPHILS # (AUTO) 0.1 10^3/uL (0.0-0.3); EOSINOPHILS % (AUTO) 0 % (0-10); HEMATOCRIT 34 % (40-54); HEMOGLOBIN 11.1 g/dL (13.3-17.7); LYMPHOCYTES # (AUTO) 2.5 10^3/uL (1.0-4.0); LYMPHOCYTES % (AUTO) 17 % (12-44); MEAN CORPUSCULAR HEMOGLOBIN 29 pg (25-34); MEAN CORPUSCULAR HGB CONC 33 g/dL (32-36); MEAN CORPUSCULAR VOLUME 87 fL (80-99); MEAN PLATELET VOLUME 9.9 fL (9.0-12.2); MONOCYTES # (AUTO) 2.8 10^3/uL (0.0-1.0); MONOCYTES % (AUTO) 19 % (0-12); NEUTROPHILS % (AUTO) 61 % (42-75); PLATELET COUNT 221 10^3/uL (130-400); WHITE BLOOD COUNT 14.8 10^3/uL (4.3-11.0)
[2022-04-25 03:36] LABS: CALCIUM 8.3 MG/DL (8.5-10.1); CREATININE SERUM 0.73 MG/DL (0.60-1.30); MAGNESIUM 1.8 MG/DL (1.6-2.4); POTASSIUM 3.6 MMOL/L (3.6-5.0)
[2022-04-25] MEDS: MAGNESIUM 1 GM/100 ML IVPB 100 ML IV SCH (03:38)
[2022-04-25] MEDS: POTASSIUM CL 10MEQ/50ML IVPB 50 ML IV SCH (03:39)
[2022-04-25] MEDS: KCL 20 MEQ TAB (K-DUR) PO SCH (03:40)
[2022-04-25] MEDS: CEFEPIME INJECTION 1,000 MG in NS (IVPB) 50 ML IV SCH ×4 (03:52→21:10)
[2022-04-25] MEDS: ACETAMINOPHEN 325 MG TABLET PO PRN (03:55)
[2022-04-25 03:57] VITALS: BP 140/83
[2022-04-25] MEDS: VANCOMYCIN 1500 MG/NS 500 ML IVPB IV SCH ×4 (05:26→16:56)
[2022-04-25] MEDS ORDERED: KCL 20 MEQ TAB (K-DUR) PO ONE (06:00)
--- NOTE | 2022-04-25 06:28 | Progress Note - Surgery ---
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 Pain is well controlled Labs reviewed Review of Systems General: No Chills; Night Sweats HEENT: No Head Aches, No Visual Changes Pulmonary: No Dyspnea, No Cough Cardiovascular: No: Chest Pain, Palpitations Gastrointestinal: No: Nausea, Vomiting, Abdominal Pain Genitourinary: No Dysuria, No Frequency Musculoskeletal: No: neck pain, shoulder pain Neurological: No: Weakness, Numbness Focused Exam Lactate Level 04/22/22 18:15: Lactic Acid Level 1.19 04/23/22 13:00: Lactic Acid Level 1.16 Objective Exam Vital Signs Date Time Temp Pulse Resp B/P (MAP) Pulse Ox O2 Delivery O2 Flow Rate FiO2 04/25/22 03:57 36.7 78 18 140/83 (102) 92 Room Air 04/25/22 01:00 102 04/24/22 23:06 36.7 88 18 143/82 (102) 95 Room Air 04/24/22 20:17 95 Room Air 04/24/22 19:34 37.3 97 20 108/72 (84) Room Air 04/24/22 19:00 96 04/24/22 18:00 96 Room Air 04/24/22 17:00 93 126/76 (93) Room Air 04/24/22 16:02 98 22 143/83 (103) Room Air 04/24/22 16:02 37.6 04/24/22 15:02 100 20 101/81 (88) Room Air 04/24/22 14:02 88 34 110/62 (78) Room Air 04/24/22 13:02 91 10 140/91 (107) 95 Room Air 04/24/22 13:00 95 04/24/22 12:02 92 23 149/111 (124) 92 Room Air 04/24/22 12:00 37.7 04/24/22 12:00 97 Room Air 04/24/22 11:02 95 20 113/79 (90) 97 Room Air 04/24/22 10:00 99 12 164/109 (127) 96 Room Air 04/24/22 09:00 89 15 155/119 (131) 98 Room Air 04/24/22 08:00 97 Room Air 04/24/22 08:00 93 21 125/81 (96) 92 Room Air 04/24/22 07:48 37.0 04/24/22 07:00 97 18 114/54 (74) 93 Room Air 04/24/22 07:00 102 I & O 04/25/22 06:59 Intake Total 4775 ml Output Total 3315 ml Balance 1460 ml Capillary Refill : Less Than 3 Seconds General Appearance: No Apparent Distress, Obese HEENT: PERRL/EOMI; No Scleral Icterus (L), No Scleral Icterus (R); Other (dry mucous membranes, poor dentition) Neck: Full Range of Motion, Normal Inspection, Supple Respiratory: Chest Non Tender, Normal Breath Sounds, No Accessory Muscle Use, No Respiratory Distress Cardiovascular: Regular Rate, Rhythm, No JVD Peripheral Pulses: 2+ Radial Pulses (R), 2+ Radial Pulses (L) Gastrointestinal: non tender, soft Extremity: Calf Tenderness (Right calf), Inflammation (Right lower extremity r ed, tender, warm, swollen. Erythema regressing from outline. 2 cm blister formed on dorsal aspect of right leg.), Swelling (RLE) Neurologic/Psychiatric: Alert, Oriented x3, No Motor/Sensory Deficits, Normal Mood/Affect Skin: Normal Color, Warm/Dry, Erythema (RLE), Rash, Tattoos/Piercings Lymphatic: No Adenopathy Results Lab Laboratory Tests 04/25/22 03:02: White Blood Count 14.8H, Red Blood Count 3.88L, Hemoglobin 11.1L, Hematocrit 34L , Mean Corpuscular Volume 87, Mean Corpuscular Hemoglobin 29, Mean Corpuscular Hemoglobin Concent 33, Red Cell Distribution Width 14.4, Platelet Count 221, Mean Platelet Volume 9.9, Immature Granulocyte % (Auto) 3, Neutrophils (%) (Auto) 61, Lymphocytes (%) (Auto) 17, Monocytes (%) (Auto) 19H, Eosinophils (%) (Auto) 0, Basophils (%) (Auto) 1, Neutrophils # (Auto) 9.0H, Lymphocytes # (Auto) 2.5, Monocytes # (Auto) 2.8H, Eosinophils # (Auto) 0.1, Basophils # (Auto) 0.1, Immature Granulocyte # (Auto) 0.4H, Sodium Level 132L, Potassium Level 3.6, Chloride Level 100, Carbon Dioxide Level 21, Anion Gap 11, Blood Urea Nitrogen 8, Creatinine 0.73, Estimat Glomerular Filtration Rate 108, BUN/Creatinine Ratio 11, Glucose Level 114H, Calcium Level 8.3L, Magnesium Level 1.8 Microbiology 04/23/22 Blood Culture - Preliminary, Resulted No growth 04/22/22 MRSA Screen - Final, Complete MRSA not isolated Assessment/Plan Assessment/Plan Assessment/Plan Sepsis secondary to cellulitis of right calf Methamphetamine positive tox screen History of MRSA Blood cultures resulted from [facility]-Negative. Repeated blood cultures- Negative Continue abx No further imaging needed at this time Continue supportive care Erythema outlined, continue to monitor for expansion-Currently regressing from outline HERMES KERR DO 04/25/22 1601: Subjective Subjective/Events-last exam Patient lying in bed. Patient states that his leg is continuing to improve. He does note a small blister on the posterior calf portion approximately dime size. Patient still with some pain to the leg but improving. His white blood cell count continues to trend down. He has no new complaints. Denies any nausea vomiting fever sweats chills shortness of breath or chest pain at this time. Objective Exam General Appearance: No Apparent Distress, Obese HEENT: PERRL/EOMI, Normal ENT Inspection Neck: Full Range of Motion, Normal Inspection, Supple Respiratory: Chest Non Tender, No Accessory Muscle Use, No Respiratory Distress Cardiovascular: Regular Rate, Rhythm, No JVD Gastrointestinal: non tender, soft Extremity: Calf Tenderness (Right calf), Inflammation (Right lower extremity red, tender, warm, swollen. Erythema regressing from outline. 2 cm blister formed on dorsal aspect of right leg.) Neurologic/Psychiatric: Alert, Oriented x3, No Motor/Sensory Deficits, Normal Mood/Affect Skin: Warm/Dry, Erythema (RLE), Rash, Tattoos/Piercings Lymphatic: No Adenopathy Assessment/Plan Assessment/Plan Assessment/Plan Sepsis secondary to cellulitis of right calf Methamphetamine positive tox screen History of MRSA Blood cultures resulted from [facility]-Negative. Repeated blood cultures- Negative Continue abx No further imaging needed at this time Continue supportive care Erythema outlined, continue to monitor for expansion-Continues to improve from outline Supervisory-Addendum Brief Verification & Attestation Participated in pt care: history, MDM, physical Personally performed: exam, history, MDM, supervision of care Care discussed with: Medical Student Procedures: n/a Results interpretation: Verified all documentation Verification and Attestation of Medical Student E/M Service A medical student performed and documented this service in my presence. I reviewed and verified all information documented by the medical student and made modifications to such information, when appropriate. I personally performed the physical exam and medical decision making. Hermes Kerr, Apr 25, 2022,16:03 NEIL LAWTON Apr 25, 2022 06:28 HERMES KERR DO Apr 25, 2022 16:01
[2022-04-25 08:00] VITALS: BP 137/84
[2022-04-25] MEDS: DOCUSATE SODIUM 100 MG (COLACE) CAP PO SCH ×2 (09:12→19:55)
[2022-04-25] MEDS: SENNOSIDES 8.6 MG (SENOKOT) TAB PO SCH ×2 (09:12→19:55)
[2022-04-25] MEDS: MUPIROCIN 2% OINT 22 GM (BACTROBAN) TUBE NSEACH SCH ×2 (09:12→21:10)
[2022-04-25 12:00] VITALS: BP 121/76
[2022-04-25 16:04] VITALS: BP 122/67
[2022-04-25] MEDS: ENOXAPARIN 40 MG/0.4 ML (LOVENOX) SYR SC SCH (16:53)
--- NOTE | 2022-04-25 17:04 | Progress Note ---
Subjective Subjective/Events-last exam Patient states that he is feeling much better this AM and wanting to go home. Tolerating PO diet. Has not been up out of bed yet. Review of Systems General: Fatigue Pulmonary: No Dyspnea, No Cough Cardiovascular: Edema; No: Chest Pain, Palpitations Gastrointestinal: No: Nausea, Vomiting, Abdominal Pain Neurological: Weakness Focused Exam Lactate Level 04/22/22 18:15: Lactic Acid Level 1.19 04/23/22 13:00: Lactic Acid Level 1.16 Objective Exam Last Set of Vital Signs Vital Signs Date Time Temp Pulse Resp B/P (MAP) Pulse Ox O2 Delivery O2 Flow Rate FiO2 04/25/22 16:04 37.5 91 22 122/67 (85) 97 Room Air Capillary Refill : Less Than 3 Seconds I&O Intake and Output 04/25/22 00:00 Intake Total 4760 ml Output Total 3040 ml Balance 1720 ml Intake Oral 3245 ml IV Total 1515 ml Output Urine Total 3040 ml General: Alert, Oriented X3, No Acute Distress Lungs: Clear to Auscultation, Normal Air Movement Heart: Regular Rate, No Murmurs Abdomen: Normal Bowel Sounds, Soft, No Tenderness Extremities: Other (RLE with erythematous, tight and shiny rash with bullae posterior, improving from marking, ttp improving) Neuro: Normal Speech, Sensation Intact, Cranial Nerves 3-12 NL Results/Procedures Lab Laboratory Tests 04/25/22 03:02: White Blood Count 14.8H, Red Blood Count 3.88L, Hemoglobin 11.1L, Hematocrit 34L , Mean Corpuscular Volume 87, Mean Corpuscular Hemoglobin 29, Mean Corpuscular Hemoglobin Concent 33, Red Cell Distribution Width 14.4, Platelet Count 221, Mean Platelet Volume 9.9, Immature Granulocyte % (Auto) 3, Neutrophils (%) (Auto) 61, Lymphocytes (%) (Auto) 17, Monocytes (%) (Auto) 19H, Eosinophils (%) (Auto) 0, Basophils (%) (Auto) 1, Neutrophils # (Auto) 9.0H, Lymphocytes # (Auto) 2.5, Monocytes # (Auto) 2.8H, Eosinophils # (Auto) 0.1, Basophils # (Auto) 0.1, Immature Granulocyte # (Auto) 0.4H, Sodium Level 132L, Potassium Level 3.6, Chloride Level 100, Carbon Dioxide Level 21, Anion Gap 11, Blood Urea Nitrogen 8, Creatinine 0.73, Estimat Glomerular Filtration Rate 108, BUN/Creatinine Ratio 11, Glucose Level 114H, Calcium Level 8.3L, Magnesium Level 1.8 Microbiology 04/23/22 Blood Culture - Preliminary, Resulted No growth 04/22/22 MRSA Screen - Final, Complete MRSA not isolated Assessment/Plan Assessment/Plan (1) Sepsis due to cellulitis Status: Acute Assessment & Plan: 04/24: Continue IV antibiotics, Discussed ROM exercises and getting up and walking, transfer patient to Med/Surg 04/25: Sepsis Resolved, Continue IV antibiotics today, possible transition to PO antibiotics tomorrow with goal of going home (2) Cellulitis of right lower leg Status: Acute (3) Dilated aortic root Status: Acute Assessment & Plan: 04/25: Seen on echo report and radiology recommend CTA for evaluation, ordered today (4) Hyponatremia Status: Acute Assessment & Plan: 04/24: Improving, continue to monitor 04/25: Improving (5) Tobacco abuse Status: Chronic Assessment & Plan: 04/24: Discussed the need for cessation (6) Methamphetamine abuse Status: Chronic Assessment & Plan: 04/24: Patient interested in stopping, will be referral to ATS at [facility] at discharge (7) History of MRSA infection Status: Acute ABENA GOMES MD Apr 25, 2022 17:04
[2022-04-25 20:18] VITALS: BP 139/64
[2022-04-25 23:38] VITALS: BP 122/67
[2022-04-26] MEDS: ACETAMINOPHEN 325 MG TABLET PO PRN (00:56)
[2022-04-26 03:25] VITALS: BP 156/91
[2022-04-26] MEDS: CEFEPIME INJECTION 1,000 MG in NS (IVPB) 50 ML IV SCH ×2 (03:26→09:24)
[2022-04-26] MEDS: VANCOMYCIN 1500 MG/NS 500 ML IVPB IV SCH ×2 (06:10)
[2022-04-26 06:16] LABS: BASOPHILS # (AUTO) 0.2 10^3/uL (0.0-0.1); BASOPHILS % (AUTO) 1 % (0-10); EOSINOPHILS # (AUTO) 0.1 10^3/uL (0.0-0.3); EOSINOPHILS % (AUTO) 1 % (0-10); HEMATOCRIT 38 % (40-54); HEMOGLOBIN 12.2 g/dL (13.3-17.7); LYMPHOCYTES # (AUTO) 2.6 10^3/uL (1.0-4.0); LYMPHOCYTES % (AUTO) 12 % (12-44); MEAN CORPUSCULAR HEMOGLOBIN 29 pg (25-34); MEAN CORPUSCULAR HGB CONC 33 g/dL (32-36); MEAN CORPUSCULAR VOLUME 89 fL (80-99); MEAN PLATELET VOLUME 10.2 fL (9.0-12.2); MONOCYTES # (AUTO) 2.7 10^3/uL (0.0-1.0); MONOCYTES % (AUTO) 13 % (0-12); NEUTROPHILS # (AUTO) 14.9 10^3/uL (1.8-7.8); NEUTROPHILS % (AUTO) 69 % (42-75); PLATELET COUNT 245 10^3/uL (130-400); WHITE BLOOD COUNT 21.4 10^3/uL (4.3-11.0)
[2022-04-26 06:37] LABS: POTASSIUM 3.4 MMOL/L (3.6-5.0)
[2022-04-26] MEDS: KCL 20 MEQ TAB (K-DUR) PO SCH (06:39)
[2022-04-26 06:42] LABS: CREATININE SERUM 0.72 MG/DL (0.60-1.30)
[2022-04-26 06:44] LABS: MAGNESIUM 1.8 MG/DL (1.6-2.4)
--- NOTE | 2022-04-26 06:45 | Progress Note - Surgery ---
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 No bowel movement since Sunday Pain is well controlled Labs reviewed Focused Exam Lactate Level 04/23/22 13:00: Lactic Acid Level 1.16 Objective Exam Vital Signs Date Time Temp Pulse Resp B/P (MAP) Pulse Ox O2 Delivery O2 Flow Rate FiO2 04/26/22 03:25 36.8 81 22 156/91 (112) 94 Room Air 04/26/22 01:00 79 04/25/22 23:38 36.6 94 20 122/67 (85) 96 Room Air 04/25/22 20:45 94 Room Air 04/25/22 20:18 37.3 88 20 139/64 (89) 94 Room Air 04/25/22 19:00 94 04/25/22 16:04 37.5 91 22 122/67 (85) 97 Room Air 04/25/22 13:44 83 04/25/22 12:00 36.7 83 20 121/76 (91) 94 Room Air 04/25/22 08:00 Room Air 04/25/22 08:00 36.6 84 22 137/84 (101) Room Air 04/25/22 07:42 83 I & O 04/26/22 07:00 Intake Total 3782 ml Output Total 1500 ml Balance 2282 ml Capillary Refill : Less Than 3 Seconds General Appearance: No Apparent Distress, Obese HEENT: PERRL/EOMI, Normal ENT Inspection Neck: Full Range of Motion, Normal Inspection, Supple Respiratory: Chest Non Tender, No Accessory Muscle Use, No Respiratory Distr ess, Wheezing (Expritory wheeze bilaterally in upper lobes) Cardiovascular: Regular Rate, Rhythm, No JVD Peripheral Pulses: 2+ Radial Pulses (R), 2+ Radial Pulses (L) Gastrointestinal: non tender, soft Extremity: Calf Tenderness (Right calf), Inflammation (Right lower extremity red, tender, warm, swollen. Erythema regressing from outline. 2 cm blister formed on dorsal aspect of right leg which is currently bandaged), Swelling (Right calf) Neurologic/Psychiatric: Alert, Oriented x3, No Motor/Sensory Deficits, Normal Mood/Affect Skin: Warm/Dry, Erythema (RLE), Rash, Tattoos/Piercings Lymphatic: No Adenopathy Results Lab Laboratory Tests 04/26/22 06:12: White Blood Count 21.4H, Red Blood Count 4.22L, Hemoglobin 12.2L, Hematocrit 38L , Mean Corpuscular Volume 89, Mean Corpuscular Hemoglobin 29, Mean Corpuscular Hemoglobin Concent 33, Red Cell Distribution Width 14.2, Platelet Count 245, Mean Platelet Volume 10.2, Immature Granulocyte % (Auto) 4, Neutrophils (%) (Auto) 69, Lymphocytes (%) (Auto) 12, Monocytes (%) (Auto) 13H, Eosinophils (%) (Auto) 1, Basophils (%) (Auto) 1, Neutrophils # (Auto) 14.9H, Lymphocytes # (Auto) 2.6, Monocytes # (Auto) 2.7H, Eosinophils # (Auto) 0.1, Basophils # (Auto) 0.2H, Immature Granulocyte # (Auto) 0.9H, Sodium Level 133L, Potassium Level 3.4L, Chloride Level 101, Carbon Dioxide Level 22, Anion Gap 10, Glucose Level 114H, Calcium Level 9.0 Microbiology 04/23/22 Blood Culture - Preliminary, Resulted No growth 04/22/22 MRSA Screen - Final, Complete MRSA not isolated Assessment/Plan Assessment/Plan Assessment/Plan Sepsis secondary to cellulitis of right calf Methamphetamine positive tox screen History of MRSA Blood cultures resulted from [facility]-Negative. Repeated blood cultures- Negative Continue abx No further imaging needed at this time Continue supportive care Erythema outlined, continue to monitor for expansion-Improving at this time HERMES KERR DO 04/26/22 0834: Subjective Subjective/Events-last exam Patient still with pain in rle. Swelling same to maybe a little worse. WBC increased. Denies n/v fever sweats chills shortness of breath or chest pain. Objective Exam General Appearance: No Apparent Distress, Obese HEENT: PERRL/EOMI, Normal ENT Inspection Neck: Full Range of Motion, Normal Inspection Respiratory: Chest Non Tender, No Accessory Muscle Use, No Respiratory Distress Cardiovascular: Regular Rate, Rhythm, No JVD Gastrointestinal: non tender, soft Extremity: Calf Tenderness (Right calf), Inflammation (Right lower extremity red, tender, warm, swollen. Erythema regressing from outline. 2 cm blister formed on dorsal aspect of right calf), Swelling (Right calf) Neurologic/Psychiatric: Alert, Oriented x3, No Motor/Sensory Deficits, Normal Mood/Affect Skin: Warm/Dry, Erythema (RLE), Rash, Tattoos/Piercings Lymphatic: No Adenopathy Assessment/Plan Assessment/Plan Assessment/Plan Sepsis secondary to cellulitis of right calf Methamphetamine positive tox screen History of MRSA RLE swelling WBC increasing Blood cultures resulted from [facility]-Negative. Repeated blood cultures- Negative Continue abx Will get u/s right lower extremity to see if abscess or dvt Continue supportive care Erythema outlined, continue to monitor for expansion Patient states he's going home today, told him felt may need to stay since increasing wbc and area about the same as yesterday. Supervisory-Addendum Brief Verification & Attestation Participated in pt care: history, MDM, physical Personally performed: exam, history, MDM, supervision of care Care discussed with: Medical Student Procedures: n/a Results interpretation: Verified all documentation Verification and Attestation of Medical Student E/M Service A medical student performed and documented this service in my presence. I reviewed and verified all information documented by the medical student and made modifications to such information, when appropriate. I personally performed the physical exam and medical decision making. Hermes Kerr, Apr 26, 2022,08:34 NEIL LAWTON Apr 26, 2022 06:45 HERMES KERR DO Apr 26, 2022 08:34
[2022-04-26] MEDS: MAGNESIUM 1 GM/100 ML IVPB 100 ML IV SCH (06:52)
[2022-04-26 07:47] VITALS: BP 142/79
[2022-04-26] MEDS ORDERED: CATHETER FLUSH 10 ML SYR IV PRN (08:00)
[2022-04-26] MEDS ORDERED: IOHEXOL 350 MG/ML 100 ML (OMNIPAQUE 350) VIAL IV ONE (08:00)
[2022-04-26] MEDS ORDERED: HOLD METFORMIN - RECEIVED CONTRAST 20 ML VIAL IV SCH (08:00)
[2022-04-26] MEDS ORDERED: NS 100 ML (IVPB) BAG IV ONE (08:00)
[2022-04-26] MEDS: MUPIROCIN 2% OINT 22 GM (BACTROBAN) TUBE NSEACH SCH (08:25)
[2022-04-26] MEDS: SENNOSIDES 8.6 MG (SENOKOT) TAB PO SCH (08:25)
[2022-04-26] MEDS: DOCUSATE SODIUM 100 MG (COLACE) CAP PO SCH (08:25)
[2022-04-26] MEDS ORDERED: KCL 20 MEQ TAB (K-DUR) PO ONE (09:00)
--- NOTE | 2022-04-26 10:31 | Diagnostic Imaging Report ---
PROCEDURE: CT angiography of the chest with contrast. TECHNIQUE: Multiple contiguous axial images were obtained through the chest after uneventful bolus administration of intravenous contrast. 3D reconstructed CTA MIP acquisitions were also performed. Auto Exposure Controls were utilized during the CT exam to meet ALARA standards for radiation dose reduction. INDICATION: Aortic enlargement. Ascending aorta aneurysmally dilated 4.9 cm maximal transverse dimension. Branching of the great vessels appeared normal. The descending thoracic aorta showed distal tapering descending thoracic aorta at the level of the shira 3.4 cm, at the hiatus 2.5 cm. The visualized abdominal aorta normal in caliber. No mural hematoma, dissection or vessel rupture. Root at the level of the sinus of Valsalva was dilated at 4.4 cm. Sinotubular junction 4 cm. Focal pericardial fluid or likely pericardial cyst on the right superiorly measured 7 cm AP with thickness or depth of 2.4 cm. No tamponade. Pericardial sac otherwise normal. The heart size unremarkable. There is no intracardiac chamber mass or thrombus. No evidence for central PE. No consolidating pneumonia. No findings of dolly pulmonary edema. No pleural fluid and no pneumothorax. IMPRESSION: Aneurysmal dilatation of the ascending aorta and dilatation of the aortic root. No mural hemorrhage, dissection or rupture. Descending aorta showed normal distal tapering and the visualized abdominal aorta normal in caliber. No evidence for central PE likely a right sided pericardial cyst. No pleural pathology. Dictated by: Dictated on workstation # [id number]
--- NOTE | 2022-04-26 11:06 | Diagnostic Imaging Report ---
INDICATION: Sepsis with cellulitis to the right lower leg. FINDINGS: Real-time imaging along the anterior lower portion of the mid lower leg in the area of swelling shows subcutaneous edema throughout the fat. There are no loculated fluid collections that would be favorable for drainage. IMPRESSION: Findings consistent with cellulitis and edema. No organized drainable abscess noted. Dictated by: Dictated on workstation # [id number]
[2022-04-26 11:35] VITALS: BP 137/81
--- NOTE | 2022-04-26 11:59 | Discharge Summary ---
Diagnosis/Chief Complaint Date of Admission Apr 22, 2022 at 15:50 Date of Discharge 04/26/22 Admission Diagnosis Admission Diagnosis See problem list Discharge Diagnosis See below Problems/Diagnosis: (1) Sepsis due to cellulitis Assessment & Plan: 04/24: Continue IV antibiotics, Discussed ROM exercises and getting up and walking, transfer patient to Med/Surg 04/25: Sepsis Resolved, Continue IV antibiotics today, possible transition to PO antibiotics tomorrow with goal of going home 04/26: Transition to PO antibiotics, will have close f.u on Sunday in [place] Status: Acute (2) Cellulitis of right lower leg Status: Acute (3) Dilated aortic root Assessment & Plan: 04/25: Seen on echo report and radiology recommend CTA for evaluation, ordered today 04/26: CTA shows dilation, needs f.u with vascular surgery Status: Acute (4) Hyponatremia Assessment & Plan: 04/24: Improving, continue to monitor 04/25: Improving Status: Acute (5) Tobacco abuse Assessment & Plan: 04/24: Discussed the need for cessation Status: Chronic (6) Methamphetamine abuse Assessment & Plan: 04/24: Patient interested in stopping, will be referral to ATS at [facility] at discharge Status: Chronic (7) History of MRSA infection Status: Acute Discharge Summary-Simple/Stand Consultations Dr Kerr: General Surgery Discharge Physical Examination Allergies: Coded Allergies: No Known Drug Allergies (Unverified , 10/15/15) Vitals & I&Os Vital Sign - Last 12Hours Date Time Temp Pulse Resp B/P (MAP) Pulse Ox O2 Delivery O2 Flow Rate FiO2 04/26/22 11:35 37.4 76 18 137/81 (99) 95 Room Air Intake and Output 04/26/22 00:00 Intake Total 3032 ml Output Total 1500 ml Balance 1532 ml General Appearance: Alert, Oriented X3, No Acute Distress Respiratory: Clear to Auscultation, Normal Air Movement Cardiovascular: Regular Rate, No Murmurs Abdominal: Normal Bowel Sounds, Soft, No Tenderness, No Masses Extremities: Other (RLE with erythema and swelling with bullae formation, redness is improved) Neuro: Normal Speech, Cranial Nerves 3-12 NL Psych/Mental Status: Mental Status NL, Mood NL Hospital Course See final discharge diagnosis. Discussion & Recommendations 56 yo M that presented with swelling and cellulitis of RLE. Swelling, redness and pain have improved since IV antibiotics were started. WBC count trended up on day of discharge but US did not show any abscess formation and patient really wanting to go home. Will have close f.u on Sunday. Discharge Condition at discharge stable Instructions to patient/family Please see electronic discharge instructions given to patient. Discharge Medications Reviewed and agree with Discharge Medication list on patient's Discharge Instruction sheet ABENA GOMES MD Apr 26, 2022 11:59
[2022-04-26] MEDS ORDERED: DOCU100C37 PO (12:03)
[2022-04-26] MEDS ORDERED: CLIN-144 PO (12:03)
[2022-04-26] MEDS ORDERED: OXC5T PO (12:03)
[2022-04-26] MEDS ORDERED: CEFD300C3 PO (12:03)
--- NOTE | 2022-04-26 12:05 | Discharge Summary ---
Discharge [facility] Reconcile Patient Problems Problems Reviewed?: Yes Discharge Medications New, Converted or Re-Newed RX: Transmitted to Pharmacy New Medications: Cefdinir (Cefdinir) 300 Mg Capsule 300 MG PO BID for 7 Days, #14 CAP Clindamycin HCl (Clindamycin HCl) 300 Mg Capsule 300 MG PO BID for 7 Days, #14 CAP Docusate Sodium (Docusate Sodium) 100 Mg Capsule 100 MG PO BID, #14 CAP Oxycodone Hcl (Oxyir Tablet) 5 Mg Tab 5-10 MG PO Q6H PRN for PAIN-SEE DOSE INSTRUCTIONS, #20 TAB Continued Medications: Albuterol Sulfate (Proventil Hfa) 6.7 Gm Hfa.aer.ad 2 PUFF INH Q6H PRN for SHORTNESS OF BREATH, EACH Albuterol Sulfate (Albuterol Sulfate) 2.5 Mg/0.5 Ml Vial.neb 2.5 MG INH Q4H PRN for SHORTNESS OF BREATH, EACH Fluticasone/Salmeterol (Advair 250-50 Diskus) 250 Mcg-50 Mcg/Dose Blst.w.dev 1 EACH IH BID Omeprazole (Omeprazole) 20 Mg Capsule.dr 40 MG PO DAILY, CAP TAKES 2 (20MG) CAPS Patient Instructions Goal/Follow Up Appt: Sunday with Beena in [place] Patient Instructions: - Make sure you complete your antibiotics Activity & Diet Discharge Diet: Cardiac Diet Activity as Tolerated: Yes ABENA GOMES MD Apr 26, 2022 12:05
--- NOTE | 2022-04-26 13:04 | Diagnostic Imaging Report ---
INDICATION: History of sepsis with cellulitis to the right leg. COMPARISON: None. TECHNIQUE: Duplex, sharif-scale and color-flow imaging of the right lower extremity venous system was performed. FINDINGS: The common femoral vein, superficial femoral vein, profunda femoris, and popliteal veins are normal. These vessels show normal compressibility, color flow, and doppler augmentation. The deep calf veins, although not very well seen, demonstrate no distinct intraluminal thrombus. IMPRESSION: Negative venous Doppler of the right lower extremity. Dictated by: Dictated on workstation # [id number]
[2022-04-26 13:47] VITALS: BP 137/81
== END 2022-04-26 13:55 | disposition home or self-care (01) | DRG 872 ==
LOC: ICU 15:50 → 4TH 04-24 22:43
PROVIDERS: ADMIT Internal Medicine; ATTEND Family Medicine
DX: A41.9 Sepsis, unspecified organism (principal); L03.115 Cellulitis of right lower limb; E87.1 Hypo-osmolality and hyponatremia; F15.10 Other stimulant abuse, uncomplicated; J44.9 Chronic obstructive pulmonary disease, unspecified; E66.9 Obesity, unspecified; Z68.36 Body mass index [BMI] 36.0-36.9, adult; F17.210 Nicotine dependence, cigarettes, uncomplicated; Z86.14 Personal history of Methicillin resistant Staphylococcus aureus infection; I77.819 Aortic ectasia, unspecified site; R65.20 Severe sepsis without septic shock; I27.20 Pulmonary hypertension, unspecified
CPT/HCPCS: 36415; 71045; 71275; 76881; 80048; 80202; 80306; 83605; 83735; 83935; 84145; 84295; 84300; 85007; 85025; 85027; 85652; 86141; 87040; 87081; 93306